=== PATIENT | female | born 1975 | race African-American/Black ===

== ENCOUNTER 2017-08-01 21:14 | Emergency (ER) | payer OTHER ==
[~2017-08-01] VITALS: Ht 165.1 cm; Wt 96.7 kg
[~2017-08-01 21:14] MED LIST: AMOXICILLIN500 M1 PO; DOXYCYCLINE HY100 MG PO; FLAGYL500 MG PO; HYCODAN SYRUP5 ML PO; KENALOG,ARISTOC80 G1 TP; MOTRIN600 MG PO; NAPROSYN500 MG PO; NAPROXEN500 MG PO; NOHOMEMEDS; PERCOCET 5/31 TABLET PO; VENTOLIN HFA18 GM IH; VIBRAMYCIN100 MG PO
[2017-08-01 22:13] LABS: HEMATOCRIT 32.2 % (36.0-46.0); HEMOGLOBIN 10.9 G/DL (11.9-15.5); MCHC 33.9 G/DL (30.0-36.0); MCV 82.8 FL (83-99); PLATELET COUNT 315 K/uL (156-360); RBC DIS.WIDTH-CV 12.6 % (11.8-14.6); RBC DIS.WIDTH-SD 38.4 % (39-53); RED BLOOD COUNT 3.89 M/uL (3.80-5.20); WHITE BLOOD COUNT 8.3 K/uL (4.1-10.2)
[2017-08-01 22:21] LABS: ALBUMIN 3.5 g/dL (3.2-4.8)
[2017-08-01 22:22] LABS: CHLORIDE 105 mEq/L (99-109); POTASSIUM 3.6 mEq/L (3.7-5.4); SODIUM 136 mEq/L (136-147)
[2017-08-01 22:24] LABS: GLUCOSE 85 mg/dL (70-99); TOTAL PROTEIN 7.6 g/dL (6.4-8.3)
[2017-08-01 22:26] LABS: TOTAL BILIRUBIN 0.5 mg/dL (0.0-1.0)
[2017-08-01 22:27] LABS: ALKALINE PHOSPHATASE 59 IU/L (3-129)
[2017-08-01 22:28] LABS: CREATININE 0.7 mg/dL (0.6-1.3); GFR ESTIMATE (CALCULATED) > 59 mL/min/
[2017-08-01 22:29] LABS: AST (GOT) 14 IU/L (2-34); UREA NITROGEN (BUN) 8 mg/dL (9-23)
[2017-08-01 22:30] LABS: ALT (GPT) 9 IU/L (3-49)
[2017-08-01 22:37] LABS: QUANTITATIVE HCG < 4.0 MIU/ML
[2017-08-01 23:08] LABS: APPEARANCE CLEAR ((CLEAR)); BILIRUBIN NEGATIVE; BLOOD NEGATIVE; COLOR YELLOW ((YELLOW)); GLUCOSE (STRIP) NEGATIVE; KETONES 5; LEUKOCYTES TRACE; NITRITE NEGATIVE; PROTEIN (STRIP) NEGATIVE; SPECIFIC GRAVITY 1.012 (1.000-1.030); UROBILINOGEN 0.2 MG/DL (0.2-1.0)
[2017-08-01 23:38] LABS: BACTERIA RARE /HPF; EPITHELIAL CELLS 1+ /HPF; MUCUS 1+ /LPF; RED BLOOD CELLS 0-5 /HPF (0-5); UCUL ADDED? NO; WHITE BLOOD CELLS 0-5 /HPF (0-5)
[2017-08-02] MEDS ORDERED: PERCOCET 5/31 TABLET PO (01:59)
[2017-08-02 02:28] VITALS: BP 148/80
== END 2017-08-02 02:28 | disposition home or self-care (01) ==
LOC: EME 21:14
PROVIDERS: Physician Assistant
DX: N83.202 Unspecified ovarian cyst, left side (principal); K21.9 Gastro-esophageal reflux disease without esophagitis; F32.9 Major depressive disorder, single episode, unspecified; F17.200 Nicotine dependence, unspecified, uncomplicated; Z88.2 Allergy status to sulfonamides; Z88.1 Allergy status to other antibiotic agents
CPT/HCPCS: 74177; 76856; 80053; 81003; 84702; 85027; 99281; 99285; J2405; J3010; J7030